=== PATIENT | male | born 1980 | race Caucasian/White ===

== ENCOUNTER 2016-09-28 16:46 | Emergency (ER) | payer MEDICAID, OTHER, SELFPAY ==
[~2016-09-28] VITALS: Ht 177.8 cm; Wt 102.8 kg
[2016-09-28] MEDS ORDERED: predniSONE 20 MG TAB PO ONE (17:30)
--- NOTE | 2016-09-28 19:40 | REPUSA ---
HISTORY: BACK PAIN, SADDLE PARESTHESIA, LEFT LEG WEAKNESS, HX SPINA BIFIDA. TECHNIQUE: Multisequence, multiplanar MRI imaging of lumbosacral spine without contrast. FINDINGS: There is no evidence of fracture, destructive bony lesion, spondylolisthesis, or marrow abn ormality seen in the lumbosacral spine. Conus medullaris is normal and terminates at L1. The L1/L2 level is normal with no evidence of degenerative spondylosis, disc bulging or herniation, c anal stenosis, foraminal stenosis, or nerve impingement seen. The L2/L3 level is normal with no evidence of degenerative spondylosis, disc bulging or herniation, c anal stenosis, foraminal stenosis, or nerve impingement seen. The L3/L4 level demonstrates a small posterior annular tear and degenerative spondylosis with desicca tion of the disc and 1 mm posterior central disc bulging, without significant canal stenosis or nerve root compression seen. The L4/L5 level demonstrates degenerative spondylosis with desiccation of the disc and broad-based 5 mm posterior disc protrusion impinging upon the anterior thecal sac and bilateral facet joint osteoar thropathy, but without significant canal stenosis or foraminal stenosis or nerve root impingement see n. The L5/S1 level demonstrates bilateral facet joint osteoarthropathy and bilateral spondylolysis of th e pars interarticularis, with 5 mm anterior spondylolisthesis of L5 anteriorly upon S1 with broad-bas ed posterior disc bulging resulting in mild canal stenosis but severe bilateral foraminal stenosis an d possible impingement upon the exiting right and left L5 nerve roots, best seen on the sagittal sequ ence, series 2, images 9-11 on the left side, and images 1-3 on the right side, and on the axial sequ ence series 6, images 22-23. IMPRESSION: 1. 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 2. Degenerative spondylosis at L4/L5 with 5 mm posterior disc protrusion and bilateral facet joint o steoarthropathy without significant canal stenosis or nerve root impingement at this level. 3. Mild degenerative change at L3/L4 without spinal stenosis or nerve root impingement seen.
[2016-09-28] MEDS ORDERED: KETOROLAC 60 MG/2 ML VIAL (J1885) IM ONE (20:45)
[2016-09-28] MEDS ORDERED: VALI2TAB PO (20:57)
[2016-09-28] MEDS ORDERED: NAPR500T3 PO (21:00)
[2016-09-28] MEDS ORDERED: ACETAMINOPHEN 325 MG TAB PO ONE (21:00)
[2016-09-28] MEDS ORDERED: diazePAM 2 MG TAB PO ONE (21:00)
[2016-09-28] MEDS ORDERED: LISINOPRIL 10 MG TAB PO ONE (21:00)
[2016-09-28] MEDS ORDERED: PRED20TA PO (21:00)
[2016-09-28] MEDS ORDERED: TYLE325T5 PO (21:00)
[2016-09-28 21:06] VITALS: BP 162/109
[2016-09-28 21:29] VITALS: BP 140/97
== END 2016-09-28 21:31 | disposition home or self-care (01) ==
LOC: M ED 16:46
DX: M51.35 Other intervertebral disc degeneration, thoracolumbar region (principal)

== ENCOUNTER 2016-10-23 09:00 | Outpatient (RCR) | payer OTHER ==
[~2016-10-23 09:00] MED LIST: NAPR500T3 PO; PRED20TA PO; TYLE325T5 PO; VALI2TAB PO
== END 2016-11-14 ==
LOC: M PT 09:00
PROVIDERS: ATTEND Orthopaedic Surgery
DX: Z51.89 Encounter for other specified aftercare (principal); M43.16 Spondylolisthesis, lumbar region; M47.896 Other spondylosis, lumbar region

== ENCOUNTER 2017-02-08 22:37 | Emergency (ER) | payer OTHER ==
[~2017-02-08] VITALS: Ht 177.8 cm; Wt 104.5 kg
[2017-02-08] MEDS ORDERED: IBUP-1022 PO (22:46)
[2017-02-08] MEDS ORDERED: ASPI1TAB20 PO (22:46)
[2017-02-09] MEDS ORDERED: CLEO300C2 PO (04:43)
[2017-02-09] MEDS ORDERED: NORCOTAB PO (04:43)
[2017-02-09] MEDS ORDERED: CLINDAMYCIN 150 MG CAP PO ONE (04:45)
[2017-02-09] MEDS ORDERED: NORCO 5/325MG TABLET (BULK FOR ED) PO ONE (04:45)
[2017-02-09 05:00] VITALS: BP 142/88
== END 2017-02-09 05:03 | disposition home or self-care (01) ==
LOC: M ED 22:37
DX: K08.89 Other specified disorders of teeth and supporting structures (principal)

== ENCOUNTER 2017-02-10 07:47 | Emergency (ER) | payer OTHER ==
[~2017-02-10] VITALS: Ht 177.8 cm; Wt 104.5 kg
[2017-02-10 07:47] VITALS: BP 168/96
[~2017-02-10 07:47] MED LIST changes: +ASPI1TAB20 PO; +CLEO300C2 PO; +IBUP-1022 PO; +NORCOTAB PO
== END 2017-02-10 09:44 | disposition home or self-care (01) ==
LOC: M ED 07:47
DX: K04.7 Periapical abscess without sinus (principal); K02.9 Dental caries, unspecified; K13.79 Other lesions of oral mucosa; F17.210 Nicotine dependence, cigarettes, uncomplicated; Z79.2 Long term (current) use of antibiotics

== ENCOUNTER 2017-02-11 11:19 | Outpatient (CLI) | payer OTHER ==
[~2017-02-11] VITALS: Ht 177.8 cm; Wt 104.5 kg
[2017-02-11 11:30] VITALS: BP 202/123
[2017-02-11 11:40] VITALS: BP 183/122
[2017-02-11] MEDS ORDERED: CEFTRIAXONE SOD 1 GM in APPROPRIATE DILUENT 1 EA IV ONE (13:00)
[2017-02-11 13:30] VITALS: BP 202/115
[2017-02-11] MEDS ORDERED: NORCO, ANEXSIA 5/325MG TABLET (HYDROcodone/ACETAMINOPHEN) PO ONE (15:00)
== END 2017-02-11 13:30 | disposition home or self-care (01) ==
LOC: M OPCLIPED 11:19 → M PED 11:22 → M OPCLIPED 13:30
PROVIDERS: ATTEND Dentist Oral and Maxillofacial Surgery
DX: K04.7 Periapical abscess without sinus (principal); K08.89 Other specified disorders of teeth and supporting structures

== ENCOUNTER 2017-02-12 11:54 | Outpatient (CLI) | payer OTHER ==
[~2017-02-12] VITALS: Ht 177.8 cm; Wt 104.6 kg
[2017-02-12 12:20] VITALS: BP 143/91
[2017-02-12] MEDS ORDERED: CEFTRIAXONE SOD 1 GM in APPROPRIATE DILUENT 1 EA IV ONE (13:00)
== END 2017-02-12 14:45 | disposition home or self-care (01) ==
LOC: M OPCLIPED 11:54 → M PED 12:00 → M OPCLIPED 14:45
PROVIDERS: ATTEND Dentist Oral and Maxillofacial Surgery
DX: K04.7 Periapical abscess without sinus (principal); K08.89 Other specified disorders of teeth and supporting structures

== ENCOUNTER 2017-04-12 14:23 | Emergency (ER) | payer OTHER | END 2017-04-12 17:13 | disposition home or self-care (01) | LOC: M ED 14:23 | DX: M51.36 Other intervertebral disc degeneration, lumbar region (principal); M79.605 Pain in left leg; R03.0 Elevated blood-pressure reading, without diagnosis of hypertension; F17.210 Nicotine dependence, cigarettes, uncomplicated | CPT/HCPCS: 99283 ==

== ENCOUNTER 2017-09-23 18:23 | Emergency (ER) | payer OTHER ==
[2017-09-23] MEDS: IBUPROFEN 600 MG TAB PO (18:59)
== END 2017-09-23 19:55 | disposition home or self-care (01) ==
LOC: M ED 18:23
DX: M75.102 Unspecified rotator cuff tear or rupture of left shoulder, not specified as traumatic (principal); Z72.0 Tobacco use
CPT/HCPCS: 73030

== ENCOUNTER 2017-11-02 19:56 | Emergency (ER) | payer OTHER ==
[2017-11-02] MEDS: DOXYCYCLINE HYCLATE 100 MG TAB PO (22:12)
[2017-11-02 22:23] LABS: BASO # 0.1 10^3/uL (0.0-0.2); BASO % 0.8 % (0.0-1.0); EOS # 0.1 10^3/uL (0.0-0.50); EOS % 0.9 % (0.0-3.0); HEMATOCRIT 45.4 % (42.0-52.0); HEMOGLOBIN 15.3 g/dl (13.5-17.5); IMMATURE GRANULOCYTE % 0.4 % (0-3.0); LYMPH # 3.4 10^3/uL (1.5-4.5); LYMPH % 34.3 % (24.0-44.0); MEAN CORPUSCULAR HEMOGLOBIN 30.3 pg (27.0-33.0); MEAN CORPUSCULAR HGB CONC 33.7 g/dl (32.0-36.5); MEAN CORPUSCULAR VOLUME 89.9 fl (80.0-96.0); MONO # 0.9 10^3/uL (0.0-0.8); MONO % 9.3 % (0.0-5.0); NEUTROPHILS # 5.4 10^3/uL (1.8-7.7); NEUTROPHILS % 54.3 % (36.0-66.0); PLATELET COUNT, AUTOMATED 306 10^3/uL (150-450); RED BLOOD COUNT 5.05 10^6/uL (4.30-6.10); RED CELL DISTRIBUTION WIDTH 13.4 % (11.5-14.5); WHITE BLOOD COUNT 9.9 10^3/uL (4.0-10.0)
[2017-11-05 00:07] LABS: Lyme Disease IgG Ab 18 kDa Ban Absent (.); Lyme Disease IgG Ab 23 kDa Ban Present (.); Lyme Disease IgG Ab 28 kDa Ban Absent (.); Lyme Disease IgG Ab 30 kDa Ban Absent (.); Lyme Disease IgG Ab 39 kDa Ban Absent (.); Lyme Disease IgG Ab 41 kDa Ban Absent (.); Lyme Disease IgG Ab 45 kDa Ban Absent (.); Lyme Disease IgG Ab 58 kDa Ban Absent (.); Lyme Disease IgG Ab 66 kDa Ban Absent (.); Lyme Disease IgG Ab 93 kDa Ban Absent (.); Lyme Disease IgG West Blot Int Negative (.); Lyme Disease IgM Ab 23 kDa Ban Present (.); Lyme Disease IgM Ab 39 kDa Ban Absent (.); Lyme Disease IgM Ab 41 kDa Ban Absent (.); Lyme Disease IgM Ab Quantitati 4.62 index (0.00-0.79); Lyme Disease IgM West Blot Int Negative (.)
== END 2017-11-02 22:25 | disposition home or self-care (01) ==
LOC: M ED 19:56
DX: A26.0 Cutaneous erysipeloid (principal); Z72.0 Tobacco use
CPT/HCPCS: 93005

== ENCOUNTER 2021-06-30 02:02 | Emergency (ER) | payer OTHER, SELFPAY ==
[~2021-06-30] VITALS: Ht 180.3 cm; Wt 91.6 kg
[~2021-06-30 02:02] MED LIST changes: -ASPI1TAB20 PO; +ASPI325T57 PO; +DOXY-350 PO; +HYDR-3715 PO; +IBUP80TA PO; +NAPR-885 PO; -NAPR500T3 PO; -NORCOTAB PO; +PERC5TAB12 PO; +TRAM1CAP16 PO
[2021-06-30] MEDS ORDERED: NS 1,000 ML IV ONE ×2 (02:20→05:45)
[2021-06-30] MEDS ORDERED: LORazepam 2 MG/ML VIAL IV STA ×3 (02:43→05:42)
[2021-06-30] MEDS ORDERED: LORazepam 2 MG/ML VIAL As Ordered ONE (02:45)
[2021-06-30 03:37] LABS: HEMATOCRIT 43.5 % (42.0-52.0); HEMOGLOBIN 14.7 g/dl (13.5-17.5); MEAN CORPUSCULAR HEMOGLOBIN 30.6 pg (27.0-33.0); MEAN CORPUSCULAR HGB CONC 33.8 g/dl (32.0-36.5); MEAN CORPUSCULAR VOLUME 90.6 fl (80.0-96.0); PLATELET COUNT, AUTOMATED 275 10^3/uL (150-450); WHITE BLOOD COUNT 10.1 10^3/uL (4.0-10.0)
[2021-06-30 04:17] LABS: ACETAMINOPHEN LEVEL < 2.0 UG/ML (10.0-30.0); ALBUMIN 4.4 GM/DL (3.2-5.2); ALT/SGPT 62 U/L (12-78); BILIRUBIN,DIRECT < 0.1 MG/DL (0.0-0.2); BILIRUBIN,TOTAL 0.3 MG/DL (0.2-1.0); BLOOD UREA NITROGEN 13 MG/DL (7-18); CALCIUM LEVEL 9.3 MG/DL (8.5-10.1); CARBON DIOXIDE LEVEL 25 MEQ/L (21-32); CHLORIDE LEVEL 107 MEQ/L (98-107); CREATININE FOR GFR 0.84 MG/DL (0.70-1.30); GLOMERULAR FILTRATION RATE > 60.0 (>60); GLUCOSE, FASTING 115 MG/DL (70-100); POTASSIUM SERUM 3.9 MEQ/L (3.5-5.1); SALICYLATE LEVEL 3.5 MG/DL (5.0-30.0); SODIUM LEVEL 142 MEQ/L (136-145); THYROID STIMULATING HORMONE 0.949 uIU/ML (0.358-3.740); TOTAL PROTEIN 7.2 GM/DL (6.4-8.2)
[2021-06-30 04:26] LABS: RSV AMPLIFICATION NEGATIVE (NEGATIVE)
[2021-06-30 04:36] LABS: BASO # 0.1 10^3/uL (0.0-0.2); BASO % 0.9 % (0.0-1.0); EOS # 0.1 10^3/uL (0.0-0.5); EOS % 0.7 % (0.0-3.0); LYMPH # 3.1 10^3/uL (1.5-5.0); MONO # 0.7 10^3/uL (0.0-0.8); MONO % 6.6 % (2.0-8.0); NEUTROPHILS # 6.2 10^3/uL (1.5-8.5); NEUTROPHILS % 61.4 % (36.0-66.0)
[2021-06-30 04:47] LABS: CK-MB VALUE MASS 1.5 NG/ML (<3.6); MB/CK RELATIVE INDEX 0.28 (< OR =4)
[2021-06-30] MEDS ORDERED: LORazepam 2 MG TAB PO PRN (07:00)
[2021-06-30 08:11] LABS: AMPHETAMINES LEVEL URINE POSITIVE (NEGATIVE); BARBITURATES URINE NEGATIVE (NEGATIVE); BENZODIAZEPINES URINE NEGATIVE (NEGATIVE); CANNABINOIDS URINE NEGATIVE (NEGATIVE); COCAINE METABOLITE URINE NEGATIVE (NEGATIVE); METHADONE URINE NEGATIVE (NEGATIVE); OPIATES URINE NEGATIVE (NEGATIVE); PHENCYCLIDINE URINE NEGATIVE (NEGATIVE)
[2021-06-30 08:25] VITALS: BP 138/80
[2021-06-30] MEDS ORDERED: FOLIC ACID 1 MG TAB PO SCH (09:00)
[2021-06-30] MEDS ORDERED: MULTIVITAMINS/MINERALS THERAP 1 TAB PO SCH (09:00)
[2021-06-30] MEDS ORDERED: THIAMINE 100 MG TAB PO SCH (09:00)
== END 2021-06-30 08:41 | disposition home or self-care (01) ==
LOC: M ED 02:02
DX: F10.129 Alcohol abuse with intoxication, unspecified (principal); F15.129 Other stimulant abuse with intoxication, unspecified; Y90.1 Blood alcohol level of 20-39 mg/100 ml
CPT/HCPCS: 51701; 80048; 80076; 80143; 80307; 82077; 82550; 82553; 84443; 84484; 85027; 87631; 93005; 93041; 94760; 96361; 96374; 96376; 99285; J2060

== ENCOUNTER 2022-01-15 11:04 | Emergency (ER) | payer BC ==
[~2022-01-15] VITALS: Ht 177.8 cm; Wt 93.9 kg
[~2022-01-15 11:04] MED LIST changes: -DOXY-350 PO; +DOXY-444 PO
[2022-01-15] MEDS ORDERED: GABA-1171 PO (11:39)
[2022-01-15 14:21] VITALS: BP 170/96
[2022-01-15 14:30] LABS: BASO # 0.1 10^3/uL (0.0-0.2); BASO % 0.8 % (0.0-1.0); EOS # 0.1 10^3/uL (0.0-0.5); EOS % 1.1 % (0.0-3.0); HEMATOCRIT 44.2 % (42.0-52.0); HEMOGLOBIN 14.8 g/dl (13.5-17.5); LYMPH # 2.1 10^3/uL (1.5-5.0); LYMPH % 18.6 % (24.0-44.0); MEAN CORPUSCULAR HEMOGLOBIN 30.2 pg (27.0-33.0); MEAN CORPUSCULAR HGB CONC 33.5 g/dl (32.0-36.5); MEAN CORPUSCULAR VOLUME 90.2 fl (80.0-96.0); MONO # 0.7 10^3/uL (0.0-0.8); MONO % 6.6 % (2.0-8.0); NEUTROPHILS # 8.1 10^3/uL (1.5-8.5); NEUTROPHILS % 72.5 % (36.0-66.0); PLATELET COUNT, AUTOMATED 243 10^3/uL (150-450); WHITE BLOOD COUNT 11.1 10^3/uL (4.0-10.0)
[2022-01-15 15:17] LABS: BLOOD UREA NITROGEN 8 MG/DL (7-18); CALCIUM LEVEL 9.3 MG/DL (8.5-10.1); CARBON DIOXIDE LEVEL 29 MEQ/L (21-32); CHLORIDE LEVEL 106 MEQ/L (98-107); CREATININE FOR GFR 0.98 MG/DL (0.70-1.30); GLOMERULAR FILTRATION RATE > 60.0 (>60); GLUCOSE, FASTING 95 MG/DL (70-100); POTASSIUM SERUM 4.5 MEQ/L (3.5-5.1); SODIUM LEVEL 140 MEQ/L (136-145); URIC ACID 7.8 MG/DL (3.5-7.2)
[2022-01-15] MEDS ORDERED: IBUPROFEN 600MG TAB PO ONE (16:00)
[2022-01-15] MEDS ORDERED: IBUP-1022 PO (16:43)
== END 2022-01-15 16:55 | disposition home or self-care (01) ==
LOC: M ED 11:04
DX: M10.072 Idiopathic gout, left ankle and foot (principal); E79.0 Hyperuricemia without signs of inflammatory arthritis and tophaceous disease; Z87.891 Personal history of nicotine dependence; Z79.899 Other long term (current) drug therapy